=== PATIENT | female | born 1990 | race African-American/Black ===

== ENCOUNTER 2017-03-24 01:09 | Outpatient (CLI) | payer OTHER ==
[~2017-03-24] VITALS: Ht 157.5 cm; Wt 82.2 kg
[2017-03-24] MEDS ORDERED: LR 1,000 ML IV SCH (02:34)
[2017-03-24] MEDS ORDERED: PRENTAB9 PO (02:43)
[2017-03-24] MEDS ORDERED: diphenhydrAMINE 25 MG CAP PO PRN (02:45)
[2017-03-24] MEDS ORDERED: ACETAMINOPHEN TAB 650MG DOSE (2X325MG) PO PRN (02:45)
[2017-03-24] MEDS ORDERED: BETAMETHASONE SOLUSPAN 6MG/ML INJ 5ML (J0702) IM SCH (02:45)
[2017-03-24 07:14] VITALS: BP 113/72
[2017-03-24 08:14] VITALS: BP 114/67
[2017-03-24] MEDS ORDERED: LACTATED RINGER'S 1000 ML IV ONE (08:15)
--- NOTE | 2017-03-24 08:23 | IPNPDOC ---
Text Note Date of Service The patient was seen on 03/24/17. NOTE PTL assessment Jacquie is a 26yo with SIUP at 34wk who presented around 0200 on 03/24 with chief complaint of ongoing cramping. She stated she had cramping all day long that seemed to get worse when she lied down. She endorsed staying well hydrated. Last intercourse was the night prior. She stated baby was moving well. No loss of fluid, no vaginal bleeding. She denies vaginal odor or abnormal discharge, denies pain with urination or increased urgency. Obstetric history is 1 prior vaginal delivery at 40wk, she endorses a 3mll with that delivery Vitals wnl, afebrile Exam: General: WDWN, resting comfortably in bed Abdomen: soft, nontender, non-distended, gravid Extremities: trace edema of BLE SSE with RN as annealer: NEFG, normal appearing physiologic discharge, cervix difficult to assess with redundant vaginal tissue, sample obtained for JONY/WP and GBS swab performed SCE: 2/50/high Cat I FHRT with moderate variability, +accels, -decels Toxey: ctx q4-5min, mild Labs: JONY/WP negative for clue cells/trichomonas/budding yeast or hyphae GBS swab pending Urinalysis: 1+ LE and bacteria, but nitrite negative, 4 squam Assessment: Jacquie is a 26yo with SIUP at 34wk with pre-term contractions. She is not currently in active labor, but concern for latent labor given consistent contractions and SCE 2/50/high. status reassuring. JONY/WP negative for infection. Borderline UA with +LE/bacteria but also 4 squam and negative nitrite. She has no symptoms of UTI. Ob hx is one prior term . Plan: -Will observe until the morning and re-check cervix at that time. If making cervical change, will admit. If no cervical change, will discharge. -One dose IM 12mg betamethasone now and will repeat in 24hr. If patient is discharged in the morning, she can re-present for second betamethasone as an outpatient -Clear liquid diet overnight -Continuous monitoring with toco -GBS pending -Reflex urine culture MD Domitila Mclaughlin VS,John, I+O VS, Fishbone, I+O Vital Signs Date Time Temp Pulse Resp B/P (MAP) Pulse Ox O2 Delivery O2 Flow Rate FiO2 03/24/17 07:14 98.1 103 18 113/72 (86) I&O- Last 24 Hours up to 6 AM 03/25/17 06:00 Intake Total 602 ml Balance 602 ml Alicia Kohler MD Mar 24, 2017 08:23
--- NOTE | 2017-03-24 08:41 | IPNPDOC ---
Text Note Date of Service The patient was seen on 03/24/17. NOTE Repeat SCE at 0830 on 03/24 is unchanged 2/50/high. Cat I FHRT overnight with continued regular, mild ctx. Patient endorses ctx are no worse, still feels them as cramping. Will discharge to home given no concern for advancing labor. Patient instructed to return tonight/early tomorrow morning between 3-5am for repeat 12mg IM betamethasone dose to complete a 2 dose course. Paper order written. Rx Macrobid 100mg BID x 7 days to [facility], patient knows to pick it up on her way home. She has next clinic visit 31 March for routine 36wk visit which is good to keep GBS swab obtained on presentation which is pending Return precautions discussed. Dr. Alicia Kohler MD VS,John, I+O VS, John, I+O Vital Signs Date Time Temp Pulse Resp B/P (MAP) Pulse Ox O2 Delivery O2 Flow Rate FiO2 03/24/17 08:14 99.4 91 18 114/67 (83) I&O- Last 24 Hours up to 6 AM 03/25/17 06:00 Intake Total 602 ml Balance 602 ml Alicia Kohler MD Mar 24, 2017 08:41
[2017-03-24 09:00] VITALS: BP 120/71
== END 2017-03-24 09:00 | disposition home or self-care (01) ==
LOC: M LDO 01:09
PROVIDERS: ATTEND Obstetrics & Gynecology
DX: O99.89 Other specified diseases and conditions complicating pregnancy, childbirth and the puerperium (principal); R10.9 Unspecified abdominal pain; R35.0 Frequency of micturition; O47.03 False labor before 37 completed weeks of gestation, third trimester; Z3A.34 34 weeks gestation of pregnancy
CPT/HCPCS: 59025; 81001; 87081; J0702

== ENCOUNTER 2017-03-24 23:59 | Outpatient (CLI) | payer OTHER ==
[~2017-03-24 23:59] MED LIST: PRENTAB9 PO
== END 2017-03-25 00:05 | disposition home or self-care (01) ==
LOC: M LDO 23:59
PROVIDERS: ATTEND Obstetrics & Gynecology
DX: Z34.83 Encounter for supervision of other normal pregnancy, third trimester (principal)

== ENCOUNTER 2017-05-01 16:59 | Outpatient (CLI) | payer OTHER | END 2017-05-01 18:20 | disposition home or self-care (01) | LOC: M LDO 16:59 | DX: O47.1 False labor at or after 37 completed weeks of gestation (principal); Z3A.39 39 weeks gestation of pregnancy | CPT/HCPCS: 59025 ==

== ENCOUNTER 2017-05-02 00:13 | Inpatient (IN) | payer OTHER ==
[2017-05-02] MEDS ORDERED: LR 1,000 ML IV (01:17)
[2017-05-02] MEDS: LACTATED RINGER'S 1000 ML IV (01:17)
[2017-05-02 01:32] LABS: HEMATOCRIT 36.7 % (36.0-47.0); MEAN CORPUSCULAR HEMOGLOBIN 29.1 pg (27.0-33.0); MEAN CORPUSCULAR HGB CONC 32.7 g/dl (32.0-36.5); MEAN CORPUSCULAR VOLUME 88.9 fl (80.0-96.0); PLATELET COUNT, AUTOMATED 187 10^3/uL (150-450); RED BLOOD COUNT 4.13 10^6/uL (4.00-5.40); WHITE BLOOD COUNT 9.7 10^3/uL (4.0-10.0)
[2017-05-02] MEDS ORDERED: OXYTOCIN 30 UNITS IN 0.9% NaCl 500ML IV BAG (J2590) As Ordered (01:52)
[2017-05-02 02:05] LABS: AMPHETAMINES URINE REFLEX NEGATIVE (NEGATIVE); BARBITURATES URINE REFLEX NEGATIVE (NEGATIVE); BENZODIAZEPINES URINE REFLEX NEGATIVE (NEGATIVE); CANNABINOIDS URINE REFLEX NEGATIVE (NEGATIVE); COCAINE METABOLITE URINE REFLE NEGATIVE (NEGATIVE); METHADONE URINE REFLEX NEGATIVE (NEGATIVE); OPIATES URINE REFLEX NEGATIVE (NEGATIVE); PHENCYCLIDINE URINE REFLEX NEGATIVE (NEGATIVE)
[2017-05-02] MEDS: OXYTOCIN DRIP 30 UNITS in APPROPRIATE DILUENT 1 EA IV (02:19)
[2017-05-02] MEDS ORDERED: METOCLOPRAMIDE INJ 10MG/2ML VIAL (J2765) IV (02:30)
[2017-05-02] MEDS ORDERED: MEASLES,MUMPS,RUBELLA VACCINE INJ (MMR-II) (90707) SC (02:30)
[2017-05-02] MEDS ORDERED: ACETAMINOPHEN TAB 650MG DOSE (2X325MG) PO (02:30)
[2017-05-02] MEDS ORDERED: RHOGAM 300 MCG (1500 IU) INJ (J2790) IM (02:30)
[2017-05-02] MEDS: IBUPROFEN 800 MG TAB PO ×3 (03:15→19:54)
[2017-05-02] MEDS: DOCUSATE SODIUM 100 MG CAP PO ×2 (08:37→19:53)
[2017-05-02] MEDS: PRENATAL VITAMINS CHEWABLE TABLET PO (08:37)
[2017-05-03] MEDS: DOCUSATE SODIUM 100 MG CAP PO (08:52)
[2017-05-03] MEDS: PRENATAL VITAMINS CHEWABLE TABLET PO (08:52)
== END 2017-05-03 12:00 | disposition home or self-care (01) | DRG 775 ==
LOC: M LDO 00:13 → M LDI 01:16 → M OBS 03:55
PROC: 10E0XZZ Delivery of Products of Conception, External Approach (ICD-10-PCS; principal; 2017-05-02)
PROC: 10907ZC Drainage of Amniotic Fluid, Therapeutic from Products of Conception, Via Natural or Artificial Opening (ICD-10-PCS; 2017-05-02)
DX: O69.82X0 Labor and delivery complicated by other cord entanglement, without compression, not applicable or unspecified (principal); Z37.0 Single live birth; Z3A.39 39 weeks gestation of pregnancy